=== PATIENT | female | born 1950 | race Caucasian/White ===

== ENCOUNTER → 2016-09-21 | Outpatient (CLI) | payer OTHER ==
[2015-01-21 10:54] VITALS: BP 97/58
[~2016-09-21] MED LIST: ACET500T68 PO; AMLO10TA2 PO; ASPI-482 PO; ATOR40TA PO; HYDR12.58 PO; MELO15TA6 PO; METF500T4 PO; OXYC-323 PO; SIMV5TAB PO; [UNRECOGNIZED DRUG - CODE] MC
--- NOTE | 2016-09-21 12:14 | KCIC ---
PROCEDURE Three-view left ankle HISTORY Chronic left ankle pain worse for 1 month. No history of injury. COMPARISON None FINDINGS No evidence of an acute fracture. No aggressive bone destruction. Joint spaces and soft tissues appear unremarkable. There is some spurring at the dorsal midfoot seen on the lateral view. Small calcaneal enthesophyte is noted. IMPRESSION No acute radiographic finding. Electronically signed by: Jairo Saldana MD (Sep 21, 2016 12:13:29)
== END | disposition home or self-care (01) ==
LOC: KCIC 11:18
PROVIDERS: ATTEND Family Medicine
DX: M25.572 Pain in left ankle and joints of left foot (principal)
CPT/HCPCS: 73610

== ENCOUNTER → 2017-12-09 | Outpatient (CLI) | payer OTHER | END | disposition home or self-care (01) | LOC: KCIC MRI 07:42 | DX: S83.242A Other tear of medial meniscus, current injury, left knee, initial encounter (principal); M17.12 Unilateral primary osteoarthritis, left knee; M25.462 Effusion, left knee; M71.22 Synovial cyst of popliteal space [Baker], left knee; I10 Essential (primary) hypertension; E78.00 Pure hypercholesterolemia, unspecified; X58.XXXA Exposure to other specified factors, initial encounter; Y93.89 Activity, other specified; Y92.89 Other specified places as the place of occurrence of the external cause; Y99.8 Other external cause status | CPT/HCPCS: 73721 ==

== ENCOUNTER → 2020-09-05 | Outpatient (CLI) | payer MEDICARE ==
[2015-01-21 10:54] VITALS: BP 97/58
[~2020-09-05] MED LIST changes: +AMLO-187 PO; -AMLO10TA2 PO; +METF500T16 PO; -METF500T4 PO; -OXYC-323 PO; +OXYC1TAB15 PO
--- NOTE | 2020-09-05 17:15 | RAD ---
CT HEAD INDICATION: BENIGN ESSENTIAL TREMOR COMPARISON: None Available. Exposure: One or more of the following individualized dose reduction techniques were utilized for thi s examination: 1. Automated exposure control 2. Adjustment of the mA and/or kV according to patient size 3. Use of iterative reconstruction technique TECHNIQUE: 5 mm contiguous axial images were obtained from the skull base to the vertex in both bone and soft tissue algorithm. FINDINGS: No abnormal attenuation within the brain parenchyma. No evidence of acute intracranial hemorrhage. No extra-axial fluid collections. No mass effect or midline shift. Ventricular size is appropriate. Basal cisterns are patent. No fractures identified.Teresa-white differentiation is preserved.Globes and orbits are within normal l imits. Paranasal sinuses and mastoid air cells are clear. IMPRESSION: No acute intracranial findings. Electronically signed by: Da Gutierrez MD (09/05/2020 5:12 PM) [id number]
== END ==
LOC: CT 15:30
PROVIDERS: ATTEND Nurse Practitioner Family
DX: G25.0 Essential tremor (principal)
CPT/HCPCS: 70450

== ENCOUNTER → 2021-01-17 | Outpatient (CLI) | payer MEDICARE ==
[2015-01-21 10:54] VITALS: BP 97/58
--- NOTE | 2021-01-17 17:36 | CARD ---
MR#: [id number] Date of Study: 01/17/2021 Ordering Physician: PHILLIP PARRY, Referring Physician: PHILLIP PARRY, Tech: Anny Guevara, [facility] APPROVED REPORT EXAM: Two-dimensional and M-mode echocardiogram with Doppler and color Doppler. Other Information Quality : AverageHR: 63bpm INDICATION Aortic Valve Disease RISK FACTORS Hypertension Hyperlipidemia Diabetes 2D DIMENSIONS RVDd3.1 (2.9-3.5cm)Left Atrium(2D)3.6 (1.6-4.0cm) IVSd0.9 (0.7-1.1cm)Aortic Root(2D)2.9 (2.0-3.7cm) LVDd4.8 (3.9-5.9cm)LVOT Diameter2.0 (1.8-2.4cm) PWd1.0 (0.7-1.1cm)LVDs2.6 (2.5-4.0cm) FS (%) 46.3 %SV82.0 ml Aortic Valve AoV Peak Miguel.247.7cm/sAoV VTI49.9cm AO Peak GR.24.5mmHgLVOT Peak Miguel.132.6cm/s LVOT VTI 32.36cmAO Mean GR.13mmHg MISTY (VMAX)1.84hw8SPS (VTI)1.94cm2 AI P 1/2 [id number] Mitral Valve MV E Xajnjhnn35.0cm/sMV DECEL [id number] MV A Zzfvnplg863.5cm/sMV E Mean Gr.3mmHg MV HHA442ibP/A Ratio0.7 MVA (PHT)1.97cm2 TDI E/Lateral E'14.1E/Medial E'17.9 Pulmonary Valve PV Peak Gwdvcjmi498.3cm/sPV Peak Grad.5mmHg Tricuspid Valve TR P. Vmmqbwta766ou/sRAP XHEMTYLI4cgCk TR Peak Gr.59yoHiAYCZ51ykGs Pulmonary Vein PVa [id number] LEFT VENTRICLE The left ventricle is normal size. There is normal left ventricular wall thickness. The left ventricu lar systolic function is normal and the ejection fraction is within normal range. The Ejection Fracti on is 60-65%. There is normal LV segmental wall motion. Transmitral Doppler flow pattern is Grade I-a bnormal relaxation pattern. RIGHT VENTRICLE The right ventricle is normal size. There is normal right ventricular wall thickness. The right ventr icular systolic function is normal. ATRIA The left atrium size is normal. The right atrium size is normal. The interatrial septum is intact wit h no evidence for an atrial septal defect or patent foramen ovale as noted on 2-D or Doppler imaging. AORTIC VALVE The aortic valve is calcified and displays decreased opening. Doppler and Color Flow revealed mild ao rtic regurgitation. Calculated aortic valve area is 1.57 cm2 with maximum pressure gradient of 33 mmH g and mean pressure gradient of 16 mmHg. There is mild to moderate valvular aortic stenosis. MITRAL VALVE The mitral valve is calcified and displays decreased opening. There is no evidence of mitral valve pr olapse. There is no mitral valve stenosis mean gradient of 2.9 mmHg. There is no mitral valve stenosi s. Doppler and Color-flow revealed trace mitral regurgitation. TRICUSPID VALVE The tricuspid valve is normal in structure and function. Doppler and Color Flow revealed trace tricus pid regurgitation with an estimated PAP of 31 mmHg. There is no tricuspid valve stenosis. PULMONIC VALVE The pulmonic valve is not well visualized. Doppler and Color Flow revealed trace pulmonic valvular re gurgitation. GREAT VESSELS The aortic root is normal in size. The IVC is normal in size and collapses >50% with inspiration. PERICARDIAL EFFUSION There is no evidence of significant pericardial effusion. Critical Notification Critical Value: No <Conclusion> The left ventricle is normal size. The left ventricular systolic function is normal and the ejection fraction is within normal range. The Ejection Fraction is 60-65%. Doppler and Color Flow revealed mild aortic regurgitation. Calculated aortic valve area is 1.57 cm2 with maximum pressure gradient of 33 mmHg and mean pressure gradient of 16 mmHg. There is mild to moderate valvular aortic stenosis. Doppler and Color-flow revealed trace mitral regurgitation. Doppler and Color Flow revealed trace tricuspid regurgitation with an estimated PAP of 31 mmHg. Signed by : Phillip Parry MD Electronically Approved : 01/17/2021 17:35:20
== END ==
LOC: ECHO 12:22
PROVIDERS: ATTEND Internal Medicine Cardiovascular Disease
DX: I08.0 Rheumatic disorders of both mitral and aortic valves (principal)
CPT/HCPCS: 93306